=== PATIENT | female | born 1945 | race Caucasian/White ===

== ENCOUNTER → 2017-02-17 | Day surgery (SDC) | payer MEDICARE ==
--- NOTE | 2017-02-17 09:24 | MMO ---
STEREOTACTIC GUIDED LEFT BREAST CALCIFICATION BIOPSY SURGICAL SPECIMEN MAMMOGRAPHY LEFT BREAST LEFT BREAST DIAGNOSTIC MAMMOGRAM POST BIOPSY: Date: 02/17/17 HISTORY: Abnormal microcalcifications. Prior breast cancer. FINDINGS: After explaining the procedure and answering all questions, the microcalcification cluster at the tabares perolateral aspect of the left breast was visualized. Sterile technique, buffered local anesthesia, stereotactic guidance, and a lateral approach were used to carefully advance the 10 gauge vacuum-ass isted needle to the microcalcification cluster. Position was confirmed with stereotactic imaging. Tw elve samples were obtained. Localization clip was placed in the biopsy bed. Surgical specimen mammography shows calcifications in the specimen tissue. Needle was removed. The patient tolerated the procedure well and was eventually dismissed in good co ndition. Postprocedure mammography shows heterogeneously dense fibroglandular tissue. Soft tissue gas and cli p are consistent with recent stereotactic guided biopsy. Most of the microcalcifications have been r emoved. IMPRESSION: Technically successful stereotactic guided biopsy left breast microcalcifications. Pathology is pend ing. POS: IVAN
== END ==
LOC: MAMMO 06:56
PROVIDERS: ATTEND Internal Medicine Hematology & Oncology
PROC: 0HBU3ZX Excision of Left Breast, Percutaneous Approach, Diagnostic (ICD-10-PCS; principal; 2017-02-17)
DX: D05.12 Intraductal carcinoma in situ of left breast (principal); I10 Essential (primary) hypertension; I49.9 Cardiac arrhythmia, unspecified; Z90.89 Acquired absence of other organs; Z79.01 Long term (current) use of anticoagulants; Z79.899 Other long term (current) drug therapy; Z95.0 Presence of cardiac pacemaker; Z98.890 Other specified postprocedural states; Z88.2 Allergy status to sulfonamides
CPT/HCPCS: 19081; 76098; 88305; 88341; 88342; G0206

== ENCOUNTER 2018-01-19 14:55 | Outpatient (CLI) | payer MEDICARE | END 2018-01-19 14:56 | disposition home or self-care (01) | LOC: BICMAMMO 14:55 | PROVIDERS: ATTEND Internal Medicine Hematology & Oncology | DX: Z08 Encounter for follow-up examination after completed treatment for malignant neoplasm (principal); Z85.3 Personal history of malignant neoplasm of breast | CPT/HCPCS: 77066; G0279 ==